=== PATIENT | female | born 1995 | race Hispanic/Latino ===

== ENCOUNTER 2017-12-18 17:14 | Inpatient (IN) | payer BC ==
[2017-12-18] MEDS ORDERED: Sodium Chloride 0.9% 1,000 ML IV STA (17:34)
--- NOTE | 2017-12-18 17:40 | ED PDOC ---
Arrival/HPI - General Chief Complaint: Abdominal Pain Time Seen by Provider: 12/18/17 17:29 Historian: Patient - History of Present Illness Narrative History of Present Illness (Text): 12/18/17 17:30 22 y/o male, whose PMH includes pancreatitis, and cholecystitis, who presents to the emergency department complaining of epigastric abdominal pain since last night. Patient reports she had greasy food one day ago and began to feel pain. Patient denies shortness of breath, chest pain, nausea, vomiting, diarrhea, dysuria or other complaints. Time/Duration: 24 hours Symptom Onset: Sudden Symptom Course: Unchanged Context: Home Past Medical History - Provider Review Nursing Documentation Reviewed: Yes - Infectious Disease Hx of Infectious Diseases: None - Reproductive Menopause: No - Cardiac Hx Cardiac Disorders: No - Pulmonary Hx Respiratory Disorders: No - Neurological Hx Neurological Disorder: No - HEENT Hx HEENT Disorder: No - Renal Hx Renal Disorder: No - Endocrine/Metabolic Hx Endocrine Disorders: No - Hematological/Oncological Hx Blood Disorders: No - Integumentary Hx Dermatological Disorder: No - Musculoskeletal/Rheumatological Hx Musculoskeletal Disorders: No Hx Falls: No - Gastrointestinal Hx Gastrointestinal Disorders: No - Genitourinary/Gynecological Hx Genitourinary Disorders: No - Psychiatric Hx Psychophysiologic Disorder: No Hx Substance Use: No - Anesthesia Hx Anesthesia: No Family/Social History - Physician Review Nursing Documentation Reviewed: Yes Family/Social History: Unknown Family HX Smoking Status: Never Smoked Hx Alcohol Use: No Hx Substance Use: No Allergies/Home Meds Allergies/Adverse Reactions: Allergies No Known Allergies Allergy (Verified 12/18/17 17:28) Home Medications: Home Meds Medication Instructions Recorded Confirmed No Known Home Med 12/18/17 12/18/17 Review of Systems - Physician Review All systems were reviewed & negative as marked: Yes - Review of Systems Constitutional: absent: Fevers Respiratory: absent: SOB Gastrointestinal: Abdominal Pain Physical Exam Vital Signs Reviewed: Yes Vital Signs Temp Pulse Resp BP Pulse Ox 12/18/17 20:01 76 18 131/79 99 12/18/17 17:24 98.1 F 82 18 148/100 H 99 Temperature: Afebrile Blood Pressure: Hypertensive Pulse: Regular Respiratory Rate: Normal Appearance: Positive for: Well-Appearing, Non-Toxic, Comfortable, Other ( morbidly obese) Pain Distress: None Mental Status: Positive for: Alert and Oriented X 3 - Systems Exam Head: Present: Atraumatic, Normocephalic Pupils: Present: PERRL Extroacular Muscles: Present: EOMI Conjunctiva: Present: Normal Respiratory/Chest: Present: Clear to Auscultation, Good Air Exchange. No: Respiratory Distress, Accessory Muscle Use, Wheezes, Rhonchi Cardiovascular: Present: Regular Rate and Rhythm, Normal S1, S2. No: Murmurs Abdomen: No: Tenderness, Distention, Peritoneal Signs, Rebound, Guarding Neurological: Present: GCS=15, CN II-XII Intact, Speech Normal Skin: Present: Warm, Dry, Normal Color. No: Rashes Psychiatric: Present: Alert, Oriented x 3, Normal Insight, Normal Concentration Medical Decision Making ED Course and Treatment: 12/18/17 Impression: 22 y/o female with unremarkable physical exam complaining of abdominal pain in the epigastric region since last night. Plan: -- Labs -- Urinalysis -- Ultrasound -- Sodium Chloride -- Reassess and disposition Prior Visits: Notes and results from previous visits were reviewed. Progress Notes: 12/18/17 20:00 Ultrasound abdomen: US Abdomen Limited, Right Upper Quadrant FINDINGS: Liver: Echogenic. No masses. Gallbladder: There are gallstones. There is no gallbladder wall thickening or sonographic Grant sign. Common bile duct: The bile duct measures 0.7 cm. There is no definite obstructing mass or calcification. Pancreas: Visualized pancreas is unremarkable. Right kidney: Normal. No mass. No hydronephrosis. IMPRESSION: There is no sonographic evidence for cholecystitis. 12/23/17 11:51 elevated lfts cbd dilation suspect choledolithaisis, dr starr accepts - Lab Interpretations Microbiology Results: Microbiology Results 12/18/17 18:05 Urine,Clean Catch Urine Culture - Final Gram Negative Jamaal Lab Results: 12/18/17 17:50 12/18/17 17:50 Lab Results 12/18/17 18:35: Urine Color Dark yellow, Urine Appearance Clear, Urine pH 6.5, Ur Specific [place] 1.020, Urine Protein Trace H, Urine Glucose (UA) Negative, Urine Ketones Negative, Urine Blood Negative, Urine Nitrate Negative, Urine Bilirubin Moderate H, Urine Urobilinogen 1.0 H, Ur Leukocyte Esterase Trace H, Urine RBC Negative, Urine WBC 0 - 2, Ur Epithelial Cells 1 - 3, Urine Bacteria Small, Urine HCG, Qual Negative 12/18/17 17:50: Sodium 142, Potassium 4.1, Chloride 104, Carbon Dioxide 27, Anion Gap 16, BUN 10, Creatinine 0.7, Est GFR ( Amer) > 60, Est GFR (Non- Af Amer) > 60, Random Glucose 98, Calcium 8.9, Magnesium 2.1, Total Bilirubin 2.4 H, Direct Bilirubin 1.8 H, AST 179 H, ALT 358 H, Alkaline Phosphatase 131 H , Total Protein 7.6, Albumin 4.1, Globulin 3.5, Albumin/Globulin Ratio 1.2, Lipase 93 12/18/17 17:50: PT 12.2, INR 1.07, APTT 28.6 12/18/17 17:50: WBC 8.1, RBC 4.57, Hgb 14.0, Hct 40.9, MCV 89.5, MCH 30.6, MCHC 34.2, RDW 13.7, Plt Count 296, MPV 10.0, Gran % 64.4, Lymph % (Auto) 24.3, [place] % (Auto) 7.2 H, Eos % (Auto) 4.0, Baso % (Auto) 0.1, Gran # 5.20, Lymph # (Auto ) 2.0, [place] # (Auto) 0.6, Eos # (Auto) 0.3, Baso # (Auto) 0.01 I have reviewed the lab results: Yes - RAD Interpretation Radiology Orders: 12/18/17 17:35 GALLBLADDER & COMMON DUCT [US] Stat Training Development Specialist: Radiologist - Medication Orders Current Medication Orders: Acetaminophen (Tylenol 325mg Tab) 650 mg PO Q6H PRN PRN Reason: Pain, moderate (4-7) Lactated Ringer's (Lactated Ringer's) 1,000 mls @ 75 mls/hr IV .[id number] RODO Morphine Sulfate (Morphine) 1 mg IM Q4H PRN PRN Reason: Pain, moderate (4-7) Last Admin: 12/23/17 06:05 Dose: 1 mg CHANELLE Pain Assessment Document 12/23/17 06:05 BR (Rec: 12/23/17 06:05 [id number] Pain Reassessment Is this a pain reassessment? No Sleep Is patient sleeping during reassessment? No Presence of Pain Presence of Pain Yes IM Administration Charges Document 12/23/17 06:05 BR (Rec: 12/23/17 06:05 BR [id number]) Charges for Administration # of IM Administrations 1 Re-Assess: MAR Pain Assessment Document 12/23/17 07:05 [facility] (Rec: 12/23/17 09:37 [id number]) Pain Reassessment Is this a pain reassessment? Yes Sleep Is patient sleeping during reassessment? No Presence of Pain Presence of Pain Yes Pain Scale Used Pain Scale Used Numeric Description Intensity of Pain at present 3 Pantoprazole Sodium (Protonix Inj) 40 mg IVP DAILY [facility] Last Admin: 12/23/17 09:37 Dose: 40 mg IVP Administration Document 12/23/17 09:37 [facility] (Rec: 12/23/17 09:37 [id number] Charges for Administration # of IVP Administrations 1 Discontinued Medications Sodium Chloride (Sodium Chloride 0.9%) 1,000 mls @ 1,000 mls/hr IV .Q1H STA Stop: 12/18/17 18:33 Last Admin: 12/18/17 17:45 Dose: 1,000 mls/hr eMAR Start Stop Document 12/18/17 17:45 GMD (Rec: 12/18/17 18:47 GMD [id number]) Intravenous Solution Start Date 12/18/17 Start Time 18:47 End Date 12/18/17 End time 19:47 Total Infusion Time 60 Lactated Ringer's (Lactated Ringer's) 1,000 mls @ 182 mls/hr IV .Q5H30M [facility] Last Admin: 12/18/17 20:56 Dose: 182 mls/hr eMAR Start Stop Document 12/18/17 20:56 [facility] (Rec: 12/18/17 20:56 [id number]) Intravenous Solution Start Date 12/18/17 Start Time 20:56 Lactated Ringer's (Lactated Ringer's) 1,000 mls @ 75 mls/hr IV .[id number] [facility] Last Admin: 12/19/17 02:38 Dose: 75 mls/hr eMAR Start Stop Document 12/19/17 02:38 [facility] (Rec: 12/19/17 02:38 [id number]) Intravenous Solution Start Date 12/19/17 Start Time 02:38 Lactated Ringer's (Lactated Ringer's) 1,000 mls @ 150 mls/hr IV .Q6H40M [facility] Last Admin: 12/22/17 23:57 Dose: 150 mls/hr eMAR Start Stop Document 12/22/17 23:57 BR (Rec: 12/22/17 23:[id number] Intraven[facility] Solution Start Date 12/22/17 Start Time 23:57 Morphine Sulfate (Morphine) 4 mg IVP Q6H PRN PRN Reason: Pain, severe (8-10) Morphine Sulfate (Morphine) 1 mg IVP ONCE PRN PRN Reason: Pain, moderate (4-7) Morphine Sulfate (Morphine) 1 mg IVP STAT STA Stop: 12/22/17 23:05 Last Admin: 12/22/17 23:23 Dose: 1 mg MAR Pain Assessment Document 12/22/17 23:23 BR (Rec: 12/22/17 23:[id number] Pain Reassessment Is this a pain reassessment? No Sleep Is patient sleeping during reassessment? No Presence of Pain Presence of Pain Yes IVP Administration Document 12/22/17 23:23 BR (Rec: 12/22/17 23:23 [id number] Charges for Administration # of IVP Administrations 1 - Scribe Statement The provider has reviewed the documentation as recorded by the Scribe Sruthi Bingham Provider Scribe Attestation: All medical record entries made by the Scribe were at my direction and personally dictated by me. I have reviewed the chart and agree that the record accurately reflects my personal performance of the history, physical exam, medical decision making, and the department course for this patient. I have also personally directed, reviewed, and agree with the discharge instructions and disposition. Disposition/Present on Arrival - Present on Arrival Any Indicators Present on Arrival: No History of DVT/PE: No History of Uncontrolled Diabetes: No Urinary Catheter: No History of Decub. Ulcer: No History Surgical Site Infection Following: None - Disposition Have Diagnosis and Disposition been Completed?: Yes Diagnosis: Choledocholithiasis Disposition: HOSPITALIZED Disposition Time: 10:00 Condition: STABLE
[2017-12-18 18:29] LABS: BASO # 0.01 K/mm3 (0.0-2.0); BASO % 0.1 % (0.0-3.0); EOS # 0.3 (0.0-0.7); GRAN # 5.2 (1.4-6.5); GRAN % 64.4 % (50.0-68.0); LYMPH % 24.3 % (22.0-35.0); MEAN CELL VOLUME 89.5 fl (80.0-105.0); MEAN CORPUSCULAR HEMOGLOBIN 30.6 pg (25.0-35.0); MEAN CORPUSCULAR HGB CONC 34.2 g/dl (31.0-37.0); MONO # 0.6 (0.1-0.6); MONO % 7.2 % (1.0-6.0); RBC 4.57 10^6/uL (3.5-6.1); RED CELL DISTRIBUTION WIDTH 13.7 % (11.5-14.5); WHITE BLOOD COUNT 8.1 10^3/ul (4.5-11.0)
[2017-12-18 18:35] LABS: INR 1.07; PARTIAL THROMBOPLASTIN TIME 28.6 Seconds (25.1-36.5); PROTHROMBIN TIME 12.2 SECONDS (9.4-12.5)
[2017-12-18 18:38] LABS: ALB/GLOB RATIO 1.2 (1.1-1.8); ALBUMIN 4.1 g/dL (3.0-4.8); ALT/SGPT 358 U/L (7-56); AST/SGOT 179 U/L (14-36); BILIRUBIN,DIRECT 1.8 mg/dL (0.0-0.4); BLOOD UREA NITROGEN 10 mg/dL (7-21); CALCIUM 8.9 mg/dL (8.4-10.5); GFR NON-AFRICAN AMERICAN > 60; LIPASE 93 U/L (23-300)
[2017-12-18 19:04] LABS: PH,URINE 6.5 (4.7-8.0); URINE BILIRUBIN MODERATE (NEGATIVE); URINE BLOOD NEGATIVE (NEGATIVE); URINE GLUCOSE (UA) NEGATIVE (NEGATIVE); URINE LEUKOCYTE ESTERASE TRACE Leu/uL (NEGATIVE); URINE PROTEIN TRACE mg/dL (<30 mg/dL)
[2017-12-18 19:05] LABS: URINE APPEARANCE CLEAR (CLEAR); URINE COLOR DARK YELLOW (YELLOW)
[2017-12-18 19:07] LABS: HCG,QUALITATIVE URINE NEGATIVE (NEGATIVE)
[2017-12-18 19:12] LABS: URINE BACTERIA SMALL (NEG); URINE RBC NEGATIVE /hpf (0-2); URINE WBC 0 - 2 /hpf (0-6)
--- NOTE | 2017-12-18 19:25 | CP.PCM.CON ---
History of Present Illness - History of Present Illness History of Present Illness: General Surgery Consult Note for Dr. Ahumada Reason for consult: abdominal pain, cholelithiasis, suspected choledolcholithiasis 22 F with PMH that includes morbid obesity, cholelithiasis [place] [facility] [place]. Patient seen and evaluated in the ED. Patient states pain began 1 day ago while laying down. Patient reports sudden onset. She states that she was diagnosed with gallstones about 3 years ago and has has pain intermittently since then. She denies associated fever/chills or nausea/ vomiting. Patient rates pain as severe at its worse but currently not having any pain. She describes pain as constant and sharp located in the epigastrium with radiation to her back. Eating/drinking made the pain worse. Patient took ibuprofen for the pain but did not help. 12 point ROS was found to be negative unless otherwise stated above. PMH: morbid obesity, cholelithiasis Meds: Phentermine Allergy: NKDA PSH: ERCP FH: non-contributory Social: current smoker - 6 cigarettes per day for 2 years, Denies EtOH and illicit drug use, student Review of Systems - Review of Systems All systems: reviewed and no additional remarkable complaints except (as per HPI ) Past Patient History - Infectious Disease Hx of Infectious Diseases: None - Past Social History Smoking Status: Never Smoked - CARDIAC Hx Cardiac Disorders: No - PULMONARY Hx Respiratory Disorders: No - NEUROLOGICAL Hx Neurological Disorder: No - HEENT Hx HEENT Problems: No - RENAL Hx Chronic Kidney Disease: No - ENDOCRINE/METABOLIC Hx Endocrine Disorders: No - HEMATOLOGICAL/ONCOLOGICAL Hx Blood Disorders: No - INTEGUMENTARY Hx Dermatological Problems: No - MUSCULOSKELETAL/RHEUMATOLOGICAL Hx Musculoskeletal Disorders: No Hx Falls: No - GASTROINTESTINAL Hx Gastrointestinal Disorders: No - GENITOURINARY/GYNECOLOGICAL Hx Genitourinary Disorders: No - PSYCHIATRIC Hx Psychophysiologic Disorder: No Hx Substance Use: No - SURGICAL HISTORY Hx Surgeries: No - ANESTHESIA Hx Anesthesia: No Meds Allergies/Adverse Reactions: Allergies Allergy/AdvReac Type Severity Reaction Status Date / Time No Known Allergies Allergy Verified 12/18/17 17:28 Physical Exam - Constitutional Appears: No Acute Distress - Head Exam Head Exam: ATRAUMATIC, NORMOCEPHALIC - Eye Exam Eye Exam: EOMI, Normal appearance Pupil Exam: PERRL - ENT Exam ENT Exam: Mucous Membranes Moist - Respiratory Exam Respiratory Exam: NORMAL BREATHING PATTERN - Cardiovascular Exam Cardiovascular Exam: REGULAR RHYTHM - GI/Abdominal Exam GI & Abdominal Exam: Normal Bowel Sounds, Soft, Tenderness (mild epigastrium). absent: Distended, Firm, Guarding, Rebound, Rigid Additional comments: (-) Grant's sign - Extremities Exam Extremities exam: Positive for: normal capillary refill, pedal pulses present - Back Exam Back exam: absent: CVA tenderness (L), CVA tenderness (R) - Neurological Exam Neurological exam: Alert, Oriented x3 - Psychiatric Exam Psychiatric exam: Normal Affect, Normal Mood - Skin Skin Exam: Dry, Intact, Normal Color, Warm Results - Vital Signs Recent Vital Signs: Last Vital Signs Temp 98.1 F 12/18/17 17:24 Pulse 82 12/18/17 17:24 Resp 18 12/18/17 17:24 BP 148/100 H 12/18/17 17:24 Pulse Ox 99 12/18/17 17:24 - Labs Result Diagrams: 12/18/17 17:50 12/18/17 17:50 Labs: Laboratory Results - last 24 hr 12/18/17 12/18/17 12/18/17 17:50 17:50 17:50 WBC 8.1 RBC 4.57 Hgb 14.0 Hct 40.9 MCV 89.5 MCH 30.6 MCHC 34.2 RDW 13.7 Plt Count 296 MPV 10.0 Gran % 64.4 Lymph % (Auto) 24.3 [place] % (Auto) 7.2 H Eos % (Auto) 4.0 Baso % (Auto) 0.1 Gran # 5.20 Lymph # (Auto) 2.0 [place] # (Auto) 0.6 Eos # (Auto) 0.3 Baso # (Auto) 0.01 PT 12.2 INR 1.07 APTT 28.6 Sodium 142 Potassium 4.1 Chloride 104 Carbon Dioxide 27 Anion Gap 16 BUN 10 Creatinine 0.7 Est GFR ( Amer) > 60 Est GFR (Non-Af Amer) > 60 Random Glucose 98 Calcium 8.9 Magnesium 2.1 Total Bilirubin 2.4 H Direct Bilirubin 1.8 H AST 179 H ALT 358 H Alkaline Phosphatase 131 H Total Protein 7.6 Albumin 4.1 Globulin 3.5 Albumin/Globulin Ratio 1.2 Lipase 93 Urine Color Urine Appearance Urine pH Ur Specific [place] Urine Protein Urine Glucose (UA) Urine Ketones Urine Blood Urine Nitrate Urine Bilirubin Urine Urobilinogen Ur Leukocyte Esterase Urine RBC Urine WBC Ur Epithelial Cells Urine Bacteria Urine HCG, Qual 12/18/17 18:35 WBC RBC Hgb Hct MCV MCH MCHC RDW Plt Count MPV Gran % Lymph % (Auto) [place] % (Auto) Eos % (Auto) Baso % (Auto) Gran # Lymph # (Auto) [place] # (Auto) Eos # (Auto) Baso # (Auto) PT INR APTT Sodium Potassium Chloride Carbon Dioxide Anion Gap BUN Creatinine Est GFR ( Amer) Est GFR (Non-Af Amer) Random Glucose Calcium Magnesium Total Bilirubin Direct Bilirubin AST ALT Alkaline Phosphatase Total Protein Albumin Globulin Albumin/Globulin Ratio Lipase Urine Color Dark yellow Urine Appearance Clear Urine pH 6.5 Ur Specific [place] 1.020 Urine Protein Trace H Urine Glucose (UA) Negative Urine Ketones Negative Urine Blood Negative Urine Nitrate Negative Urine Bilirubin Moderate H Urine Urobilinogen 1.0 H Ur Leukocyte Esterase Trace H Urine RBC Negative Urine WBC 0 - 2 Ur Epithelial Cells 1 - 3 Urine Bacteria Small Urine HCG, Qual Negative Assessment & Plan - Assessment and Plan (Free Text) Assessment: 22 F who presents with abdominal pain, cholelithiasis, suspected choledolcholithiasis Plan: -NPO -IV fluids -Analgesics/Anti-emetics PRN -GI consult for ERCP, help appreciated -f/u MRCP -Monitor WBC, LFTs -Serial abdominal exams -Further recommendations as per Dr. Brandyn Tripathi PGY2 - Date & Time Date: 12/18/17 Time: 19:00
[2017-12-18] MEDS ORDERED: Morphine 4 mg/ml ISec IVP PRN ×2 (20:23→20:25)
[2017-12-18] MEDS ORDERED: Lactated Ringer's 1,000 ML IV SCH ×2 (20:30→23:21)
[2017-12-18 21:25] VITALS: BMI 50.8
[2017-12-19 06:26] LABS: HEMOGLOBIN 12.8 g/dL (12.0-16.0); MEAN CELL VOLUME 89.9 fl (80.0-105.0); MEAN CORPUSCULAR HGB CONC 33.3 g/dl (31.0-37.0); MEAN PLATELET VOLUME 10.1 fl (7.0-11.0); RBC 4.27 10^6/uL (3.5-6.1); RED CELL DISTRIBUTION WIDTH 13.9 % (11.5-14.5); WHITE BLOOD COUNT 9.5 10^3/ul (4.5-11.0)
[2017-12-19 06:49] LABS: ALB/GLOB RATIO 1.2 (1.1-1.8); ALBUMIN 3.7 g/dL (3.0-4.8); ALT/SGPT 267 U/L (7-56); AST/SGOT 95 U/L (14-36); BLOOD UREA NITROGEN 7 mg/dL (7-21); CALCIUM 8.7 mg/dL (8.4-10.5); GFR NON-AFRICAN AMERICAN > 60
--- NOTE | 2017-12-19 07:12 | CP.PCM.PN ---
<Juan Lloyd - Last Filed: 12/19/17 07:19> Subjective - Date & Time of Evaluation Date of Evaluation: 12/19/17 Time of Evaluation: 07:00 - Subjective Subjective: General Surgery progress note for Dr Ahumada. Pt seen and examined at bedside this morning. Pt reports abdominal pain has resolved since yesterday. Denies nausea, vomiting, diarrhea, SOB, and chest pain. Objective - Vital Signs/Intake and Output Vital Signs (last 24 hours): Temp Pulse Resp BP Pulse Ox 98.3 F 72 20 138/89 98 12/18/17 22:00 12/18/17 22:00 12/18/17 22:00 12/18/17 22:00 12/18/17 22:00 - Medications Medications: Current Medications Lactated Ringer's (Lactated Ringer's) 1,000 mls @ 75 mls/hr IV .[id number] RODO Last Admin: 12/19/17 02:38 Dose: 75 mls/hr Morphine Sulfate (Morphine) 4 mg IVP Q4H PRN PRN Reason: Pain, severe (8-10) - Labs Labs: 12/19/17 06:00 12/19/17 06:00 PT 12.2 SECONDS (9.4-12.5) 12/18/17 17:50 INR 1.07 12/18/17 17:50 APTT 28.6 Seconds (25.1-36.5) 12/18/17 17:50 - Constitutional Appears: No Acute Distress - Head Exam Head Exam: ATRAUMATIC, NORMOCEPHALIC - Eye Exam Eye Exam: EOMI - ENT Exam ENT Exam: Mucous Membranes Moist - Neck Exam Neck Exam: Full ROM - Respiratory Exam Respiratory Exam: Clear to Ausculation Bilateral, NORMAL BREATHING PATTERN. absent: Accessory Muscle Use, Rales, Rhonchi, Wheezes, Respiratory Distress, Stridor - Cardiovascular Exam Cardiovascular Exam: REGULAR RHYTHM, RRR, +S1, +S2. absent: Bradycardia, Tachycardia, Diastolic murmur, Irregular Rhythm, JVD - GI/Abdominal Exam GI & Abdominal Exam: Soft, Normal Bowel Sounds. absent: Distended, Firm, Guarding, Rigid, Tenderness, Rebound - Extremities Exam Extremities Exam: Full ROM, Normal Inspection. absent: Calf Tenderness, Pedal Edema, Tenderness - Back Exam Back Exam: Full ROM. absent: CVA tenderness (L), CVA tenderness (R), muscle spasm, tenderness - Neurological Exam Neurological Exam: Alert, Awake, Oriented x3 - Psychiatric Exam Psychiatric exam: Normal Affect, Normal Mood - Skin Skin Exam: Dry, Normal Color, Warm Assessment and Plan - Assessment and Plan (Free Text) Assessment: 22 F who presents with abdominal pain, cholelithiasis, suspected choledolcholithiasis Plan: -F/u with GI recs -f/u MRCP -Further recommendations as per Dr. Brandyn Lloyd PGY-1 <Rowdy Neumann - Last Filed: 12/19/17 08:33> Objective - Vital Signs/Intake and Output Vital Signs (last 24 hours): Temp Pulse Resp BP Pulse Ox 98 F 68 20 159/60 H 97 12/19/17 07:56 12/19/17 07:56 12/19/17 07:56 12/19/17 07:56 12/19/17 07:56 - Medications Medications: Current Medications Lactated Ringer's (Lactated Ringer's) 1,000 mls @ 75 mls/hr IV .[id number] RODO Last Admin: 12/19/17 02:38 Dose: 75 mls/hr Morphine Sulfate (Morphine) 4 mg IVP Q4H PRN PRN Reason: Pain, severe (8-10) - Labs Labs: 12/19/17 06:00 12/19/17 06:00 PT 12.2 SECONDS (9.4-12.5) 12/18/17 17:50 INR 1.07 12/18/17 17:50 APTT 28.6 Seconds (25.1-36.5) 12/18/17 17:50
--- NOTE | 2017-12-19 07:14 | CP.PCM.HP ---
<Mercedes Penaloza - Last Filed: 12/19/17 10:15> History of Present Illness - History of Present Illness History of Present Illness: PGY-[address] Aaron Ms Gan, 22F, , with PMHx morbid obesity, cholelithiasis c/o abdominal pain x 1 day. she was diagnosed with gallstones about 3 years ago and has has pain intermittently since then. She had pizza on Tuesday night at 6pm. Shortly after, she felt the same abdominal pain but lasted longer than before. The pain was sharp, mid-epigastric and 8/10 in pain scale at its worse, (+) radiation to mid back. Ibuprofen helped the pain but only briefly. Last EDG in Mar showed chronic gastritis, neg H pylori ROS: Denies F/C, N/V/D/C, dysuria ED course: VS normal CBC normal CMP significant for TB 2.4, DB 1.8, AST 179, ALT 358, alk phos 131 Normal lipase Pt received 1L NS Ultrasound US, Limited to Right Upper Quadrant: (+) gallstones. No gallbladder wall thickening or sonographic Grant sign (+) bile duct measures 0.7 cm. PMH morbid obesity, cholelithiasis OBGYN LMP last month, on depo-provera as contraceptive. Sexually active, 1 male partner, use condom, denied STD PSH None FH Parents diabetes; grandmother emphysema from smoking; family has gallstone. SH current smoker - 6 cigarettes per day for 2 years, Denies EtOH and illicit drug use, student All NKDA Med PENTERMINE for wt control; depo-provera as contraception PMD Dr Aaron Present on Admission - Present on Admission Any Indicators Present on Admission: No Past Patient History - Infectious Disease Hx of Infectious Diseases: None - Past Social History Smoking Status: Never Smoked - CARDIAC Hx Cardiac Disorders: No - PULMONARY Hx Respiratory Disorders: No - NEUROLOGICAL Hx Neurological Disorder: No - HEENT Hx HEENT Problems: No - RENAL Hx Chronic Kidney Disease: No - ENDOCRINE/METABOLIC Hx Endocrine Disorders: No - HEMATOLOGICAL/ONCOLOGICAL Hx Blood Disorders: No - INTEGUMENTARY Hx Dermatological Problems: No - MUSCULOSKELETAL/RHEUMATOLOGICAL Hx Musculoskeletal Disorders: No Hx Falls: No - GASTROINTESTINAL Hx Gastrointestinal Disorders: No - GENITOURINARY/GYNECOLOGICAL Hx Genitourinary Disorders: No - PSYCHIATRIC Hx Psychophysiologic Disorder: No Hx Substance Use: No - SURGICAL HISTORY Hx Surgeries: No - ANESTHESIA Hx Anesthesia: No Meds Allergies/Adverse Reactions: Allergies Allergy/AdvReac Type Severity Reaction Status Date / Time No Known Allergies Allergy Verified 12/18/17 17:28 Physical Exam - Constitutional Appears: No Acute Distress - Head Exam Head Exam: ATRAUMATIC, NORMAL INSPECTION, NORMOCEPHALIC - Eye Exam Eye Exam: EOMI, Normal appearance, PERRL. absent: Scleral icterus Pupil Exam: NORMAL ACCOMODATION - ENT Exam ENT Exam: Mucous Membranes Moist - Neck Exam Additional comments: supple - Respiratory Exam Respiratory Exam: Clear to Auscultation Bilateral, NORMAL BREATHING PATTERN. absent: Rales, Rhonchi, Wheezes - Cardiovascular Exam Cardiovascular Exam: REGULAR RHYTHM, +S1, +S2 - GI/Abdominal Exam GI & Abdominal Exam: Normal Bowel Sounds, Soft. absent: Distended, Guarding, Rigid, Tenderness - Extremities Exam Extremities exam: Positive for: normal capillary refill. Negative for: calf tenderness, pedal pulses present - Back Exam Back exam: absent: CVA tenderness (L), CVA tenderness (R) - Neurological Exam Neurological exam: Alert, Oriented x3 - Psychiatric Exam Psychiatric exam: Normal Affect, Normal Mood - Skin Skin Exam: Dry, Warm Results - Vital Signs Recent Vital Signs: Last Vital Signs Temp 98.3 F 12/18/17 22:00 Pulse 72 12/18/17 22:00 Resp 20 12/18/17 22:00 BP 138/89 12/18/17 22:00 Pulse Ox 98 12/18/17 22:00 - Labs Result Diagrams: 12/19/17 06:00 12/19/17 06:00 Labs: Laboratory Results - last 24 hr 12/18/17 12/19/17 12/19/17 19:19 06:00 06:00 WBC 9.5 RBC 4.27 Hgb 12.8 Hct 38.4 MCV 89.9 MCH 30.0 MCHC 33.3 RDW 13.9 Plt Count 274 MPV 10.1 Sodium 143 Potassium 3.8 Chloride 109 H Carbon Dioxide 23 Anion Gap 14 BUN 7 Creatinine 0.7 Est GFR ( Amer) > 60 Est GFR (Non-Af Amer) > 60 Random Glucose 93 Calcium 8.7 Phosphorus 3.5 Magnesium 2.0 Total Bilirubin 1.3 GGT 598 H AST 95 H D ALT 267 H Alkaline Phosphatase 137 H Total Protein 6.8 Albumin 3.7 Globulin 3.1 Albumin/Globulin Ratio 1.2 Assessment & Plan - Assessment and Plan (Free Text) Plan: Abdominal pain Cholestasis with direct hyperbilirubinemia and transaminitis, questionable choledocholethiasis, R/O cholangitis Cholelithiasis. Had ruled out cholecystitis - NPO, LR @75, morphine PRN - MRCP, pending official read. Then will decide whether ERCP is necessary. If no plan for further intervention, diet challenge per GI/Surg - GI onboard - High risk of development of gallstone: (+) Family history, (+) contraceptives, (+) high fat diet Transaminitis, likely due to choledocholethiasis - further work up pending GI rec Active smoker - juvenile counselor for cessation Prophylasix - SCD, low risk for GI stress ulcer s/r/d/ w Dr Aaron <Matteo Aaron S - Last Filed: 12/19/17 18:41> Results - Vital Signs Recent Vital Signs: Last Vital Signs Temp 98.6 F 12/19/17 16:48 Pulse 73 12/19/17 16:48 Resp 20 12/19/17 16:48 BP 158/81 H 12/19/17 16:48 Pulse Ox 97 12/19/17 16:48 - Labs Result Diagrams: 12/19/17 06:00 12/19/17 06:00 Labs: Laboratory Results - last 24 hr 12/18/17 12/19/17 12/19/17 19:19 06:00 06:00 WBC 9.5 RBC 4.27 Hgb 12.8 Hct 38.4 MCV 89.9 MCH 30.0 MCHC 33.3 RDW 13.9 Plt Count 274 MPV 10.1 Sodium 143 Potassium 3.8 Chloride 109 H Carbon Dioxide 23 Anion Gap 14 BUN 7 Creatinine 0.7 Est GFR ( Amer) > 60 Est GFR (Non-Af Amer) > 60 Random Glucose 93 Calcium 8.7 Phosphorus 3.5 Magnesium 2.0 Total Bilirubin 1.3 GGT 598 H AST 95 H D ALT 267 H Alkaline Phosphatase 137 H Total Protein 6.8 Albumin 3.7 Globulin 3.1 Albumin/Globulin Ratio 1.2 Assessment & Plan - Assessment and Plan (Free Text) Plan: Pt seen and examined. I have reviewed the note of the biomedical repair technician and agree with it. I have discussed the assessment and plan with the resident. I have reviewed the patient's labs and medications. Pt with abd pain. She has elevated Bili. She will need MRCP and GI evaluation.Spoke to her mother at bedside. Pt will be NPO and on IVF. Follow labs. Morbid Obese BMI - 50
[2017-12-19] MEDS ORDERED: Gadodiamide 287 MG/ML VIAL (20ML) IV ONE (08:44)
--- NOTE | 2017-12-19 09:31 | US ---
Date of service: 12/18/2017 HISTORY: upper abd pain h/o gallstones COMPARISON: None. TECHNIQUE: Grayscale imaging was performed. FINDINGS: LIVER: Measures 19.9 cm in length. There is diffuse increased echogenicity of the liver parenchyma. No mass. No intrahepatic bile duct dilatation. GALLBLADDER: There are multiple gallstones. No wall thickening or pericholecystic fluid. The sonographic Grant's sign is negative. COMMON BILE DUCT: Measures 7.2 mm. Mild diffuse dilatation without evidence for choledocholithiasis. PANCREAS: Unremarkable as visualized. No mass. No ductal dilatation. RIGHT KIDNEY: Measures 11.3 cm in length. Normal echogenicity. No calculus, mass, or hydronephrosis. AORTA: No aneurysmal dilatation. IVC: Unremarkable. OTHER FINDINGS: None . IMPRESSION: Cholelithiasis. Mild diffuse dilatation of the common bile duct without evidence for choledocholithiasis. Mild hepatomegaly. Diffuse increased echogenicity in the liver may reflect hepatic steatosis however parenchymal infectious/ inflammatory etiologies cannot be entirely excluded. Clinical and laboratory correlation is advised. A preliminary report was provided by [email or web address].
--- NOTE | 2017-12-19 12:49 | MRI ---
Date of service: 12/19/2017 PROCEDURE: MRI Abdomen with and without contrast with MRCP HISTORY: Suspected common duct stone COMPARISON: 03/02/2013 MRI. TECHNIQUE: Multisequence, multiplanar MR images of the abdomen with and without gadolinium contrast enhancement. 20 cc of Omniscan FINDINGS: LIVER: Unremarkable. GALLBLADDER: There are multiple gallstones layered in the gallbladder. There is a probable small stone in the distal common duct. The common duct measures 8 mm in diameter. The suspected stone is best visualized on coronal image 17 series 6 and axial image 19 series 9. There is also a lack of a normal tapered appearance of the distal common duct. The study was reviewed with Dr. Ahumada SPLEEN: Unremarkable. PANCREAS: Unremarkable. ADRENALS: Unremarkable. KIDNEYS: Unremarkable. AORTA: No aneurysm. ASCITES: None. PERITONEUM: Unremarkable. LYMPH NODES: Unremarkable. OTHER FINDINGS: None. IMPRESSION: Multiple gallstones. Probable small stone in the distal common duct. Mild dilatation of the common duct measuring 8 mm.
--- NOTE | 2017-12-19 13:39 | CP.PCM.CON ---
History of Present Illness - History of Present Illness History of Present Illness: Seen and examined at bedside, chart reviewed. Request for GI consult is for Abdominal Pain. HPI: This is a 22 year old obese patient with PMH of gallstones who came to the ER for sudden onset of abdominal pain, patient endorses that she recall eating pizza. She on occasion get abdominal discomfort when eat greasey food but this was more persistent. She was admitted with similar complaints in 2012, found to have gallstones, had EGD/EUS with Dr. Zuleta and found to have gastritis, and CBD was 4.3mm/PD 1.6mm and brandon-portal and mediastinal lymph nodes. She denies fever, chills, sob/chest pain. No change in bowel habits, las BM was soft and formed, no bleeding or unintensional weight loss. Had an US and found othabe gallstones, no GB wall thickening, CBD measures 0.7 cm, MRCP done and possible cbd stones in the distal common duct, mild dilation common duct 8mm. LFt elevated on admission, show improvement today. Patient endoreses that the pain has resolved. PMH: morbid obesity, gallstones, gastritis PSH: none Allergies: NKDA MEDS:reviewed as per MAR Family HX: parents DM, gallstones in family Social HX: smokes, denies etoh, illicit drugs ROS: systems reviewed with positive findings, see HPI Past Patient History - Infectious Disease Hx of Infectious Diseases: None - Past Social History Smoking Status: Never Smoked - CARDIAC Hx Cardiac Disorders: No - PULMONARY Hx Respiratory Disorders: No - NEUROLOGICAL Hx Neurological Disorder: No - HEENT Hx HEENT Problems: No - RENAL Hx Chronic Kidney Disease: No - ENDOCRINE/METABOLIC Hx Endocrine Disorders: No - HEMATOLOGICAL/ONCOLOGICAL Hx Blood Disorders: No - INTEGUMENTARY Hx Dermatological Problems: No - MUSCULOSKELETAL/RHEUMATOLOGICAL Hx Musculoskeletal Disorders: No Hx Falls: No - GASTROINTESTINAL Hx Gastrointestinal Disorders: No - GENITOURINARY/GYNECOLOGICAL Hx Genitourinary Disorders: No - PSYCHIATRIC Hx Psychophysiologic Disorder: No Hx Substance Use: No - SURGICAL HISTORY Hx Surgeries: No - ANESTHESIA Hx Anesthesia: No Meds Allergies/Adverse Reactions: Allergies Allergy/AdvReac Type Severity Reaction Status Date / Time No Known Allergies Allergy Verified 12/18/17 17:28 - Medications Medications: Current Medications Lactated Ringer's (Lactated Ringer's) 1,000 mls @ 75 mls/hr IV .[id number] RODO Last Admin: 12/19/17 02:38 Dose: 75 mls/hr Morphine Sulfate (Morphine) 4 mg IVP Q4H PRN PRN Reason: Pain, severe (8-10) Physical Exam - Constitutional Appears: No Acute Distress - Head Exam Head Exam: NORMOCEPHALIC - Eye Exam Eye Exam: Normal appearance. absent: Scleral icterus - ENT Exam ENT Exam: Mucous Membranes Moist - Neck Exam Neck exam: Positive for: Normal Inspection - Respiratory Exam Respiratory Exam: Clear to Auscultation Bilateral, NORMAL BREATHING PATTERN. absent: Respiratory Distress - Cardiovascular Exam Cardiovascular Exam: +S1, +S2 - GI/Abdominal Exam GI & Abdominal Exam: Normal Bowel Sounds, Soft. absent: Guarding (obese), Rebound, Tenderness - Extremities Exam Extremities exam: Positive for: pedal pulses present. Negative for: calf tenderness, pedal edema - Neurological Exam Neurological exam: Alert, Oriented x3 - Skin Skin Exam: Dry, Warm Results - Vital Signs Recent Vital Signs: Last Vital Signs Temp 98 F 12/19/17 07:56 Pulse 68 12/19/17 07:56 Resp 20 12/19/17 07:56 BP 159/60 H 12/19/17 07:56 Pulse Ox 97 12/19/17 07:56 - Labs Result Diagrams: 12/19/17 06:00 12/19/17 06:00 Labs: Laboratory Results - last 24 hr 12/18/17 12/19/17 12/19/17 19:19 06:00 06:00 WBC 9.5 RBC 4.27 Hgb 12.8 Hct 38.4 MCV 89.9 MCH 30.0 MCHC 33.3 RDW 13.9 Plt Count 274 MPV 10.1 Sodium 143 Potassium 3.8 Chloride 109 H Carbon Dioxide 23 Anion Gap 14 BUN 7 Creatinine 0.7 Est GFR ( Amer) > 60 Est GFR (Non-Af Amer) > 60 Random Glucose 93 Calcium 8.7 Phosphorus 3.5 Magnesium 2.0 Total Bilirubin 1.3 GGT 598 H AST 95 H D ALT 267 H Alkaline Phosphatase 137 H Total Protein 6.8 Albumin 3.7 Globulin 3.1 Albumin/Globulin Ratio 1.2 Assessment & Plan - Assessment and Plan (Free Text) Assessment: ASSESSMENT: Resolved abdominal pain Cholelithiasis, probable CBD stone, cbd dilation Elevated LFT marquez secondary to above Morbid Obesity PLAN: monitor LFT, CMP in am can have clear liquids on IVF request for HIDA scan surgery on board if patient need ERCP may have to be transferred to [place], currently no Physician at [facility] to perform ERCP, patient pending HIDA scan. Will monitor closely, LFT have decreased and patient no abdominal pain. Thank you for this consult and for allowing us to participate in your patient care, further recommendation based upon clinical course. Discussed with Dr. Hinkle who is covering Dr. Zuleta.
--- NOTE | 2017-12-20 07:49 | CP.PCM.PN ---
Subjective - Date & Time of Evaluation Date of Evaluation: 12/20/17 Time of Evaluation: 07:30 - Subjective Subjective: General Surgery progress note for Dr Ahumada Pt seen and examined at bedside this morning. Pt reports only mild abdominal pain. Pt denies chest pain, SOB, nausea, or vomiting. Objective - Vital Signs/Intake and Output Vital Signs (last 24 hours): Temp Pulse Resp BP Pulse Ox 97.7 F 76 16 127/81 95 12/19/17 22:45 12/19/17 22:45 12/19/17 22:45 12/19/17 22:45 12/19/17 22:45 Intake and Output: 12/20/17 12/20/17 06:59 18:59 Intake Total 360 Balance 360 - Medications Medications: Current Medications Lactated Ringer's (Lactated Ringer's) 1,000 mls @ 75 mls/hr IV .[id number] RODO Last Admin: 12/19/17 02:38 Dose: 75 mls/hr Morphine Sulfate (Morphine) 4 mg IVP Q4H PRN PRN Reason: Pain, severe (8-10) - Labs Labs: 12/19/17 06:00 12/19/17 06:00 PT 12.2 SECONDS (9.4-12.5) 12/18/17 17:50 INR 1.07 12/18/17 17:50 APTT 28.6 Seconds (25.1-36.5) 12/18/17 17:50 - Constitutional Appears: No Acute Distress - Head Exam Head Exam: ATRAUMATIC, NORMOCEPHALIC - Eye Exam Eye Exam: EOMI - ENT Exam ENT Exam: Mucous Membranes Moist - Neck Exam Neck Exam: Full ROM - Respiratory Exam Respiratory Exam: Accessory Muscle Use, Clear to Ausculation Bilateral, NORMAL BREATHING PATTERN. absent: Wheezes, Respiratory Distress, Stridor - Cardiovascular Exam Cardiovascular Exam: REGULAR RHYTHM, RRR, +S1, +S2. absent: Bradycardia, Tachycardia, Diastolic murmur, Irregular Rhythm, JVD - GI/Abdominal Exam GI & Abdominal Exam: Soft. absent: Distended, Firm, Guarding, Rigid, Tenderness , Rebound - Extremities Exam Extremities Exam: Full ROM, Normal Inspection. absent: Calf Tenderness, Pedal Edema, Tenderness - Back Exam Back Exam: Full ROM. absent: CVA tenderness (L), CVA tenderness (R), muscle spasm - Neurological Exam Neurological Exam: Alert, Awake, Oriented x3 - Psychiatric Exam Psychiatric exam: Normal Affect, Normal Mood - Skin Skin Exam: Dry, Normal Color, Warm Assessment and Plan - Assessment and Plan (Free Text) Assessment: 22 F who presents with abdominal pain, cholelithiasis, suspected choledolcholithiasis Plan: -F/u with GI recs -advance diet to heart healthy soft -MRCP shows probable small stone in distal CBD, dilated 8mm. -Further recommendations as per Dr. Brandyn Lloyd PGY-1
[2017-12-20 07:50] LABS: ALB/GLOB RATIO 1.1 (1.1-1.8); ALBUMIN 4.1 g/dL (3.0-4.8); ALT/SGPT 193 U/L (7-56); AST/SGOT 41 U/L (14-36); BLOOD UREA NITROGEN 8 mg/dL (7-21); CALCIUM 8.9 mg/dL (8.4-10.5); GFR NON-AFRICAN AMERICAN > 60
--- NOTE | 2017-12-20 08:15 | CON ---
Copied To: Ilir Hinkle MD Attending MD: Ilir Hinkle MD ADDENDUM DATE: 12/19/2017 CONSULTATION IN GASTROENTEROLOGY This consult is for Dr. Zuleta, Dr. Hinkle covering. HISTORY OF PRESENT ILLNESS: This is an addendum to a consultation performed by Lily Zapata APN. I have personally examined this patient. The patient was admitted to the hospital after developing severe abdominal pain after having pizza. She admits to fatty food intolerance. The patient was hospitalized back in [address] Zuleta for similar symptoms. At that time, she was found to have gallstones. Dr. Zuleta performed an upper endoscopy and EUS, which revealed normal CBD and some periportal and mediastinal lymph nodes. The patient on this admission is noted to have mildly elevated liver enzymes. They are trending downward. An MRCP did not show a definitive stone in the common bile duct, but did show lack of tapered appearance to the distal common duct with a possible stone in the common bile duct. The patient is refusing surgery at this time. She wants to think about being transferred out to another hospital for an ERCP as no advanced endoscopist is present at [facility]. RECOMMENDATIONS: 1. The patient will need cholecystectomy after her CBD is cleared. I recommend this sooner than later if she continues to have symptoms. 2. We will request a hepatobiliary scan to look at flow of contrast from the common bile duct. 3. Follow serial liver enzymes. 4. Trial of clear liquid diet. Ilir Hinkle MD
--- NOTE | 2017-12-20 11:05 | CP.PCM.PN ---
Subjective - Date & Time of Evaluation Date of Evaluation: 12/20/17 Time of Evaluation: 09:50 - Subjective Subjective: S&E at bedside, chart reviewed, no acute overnight events reported. No N/V, abdominal pain improved, denies fever, chills. Had formed BM, no melena or BRBPR. Tolerated clear liquid. HIDA scan report reviewed, prelim reports GB not visualized, concern for acute cholecystitis. Objective - Vital Signs/Intake and Output Vital Signs (last 24 hours): Temp Pulse Resp BP Pulse Ox 98.2 F 75 20 122/72 96 12/20/17 08:08 12/20/17 08:08 12/20/17 08:08 12/20/17 08:08 12/20/17 08:08 Intake and Output: 12/20/17 12/20/17 06:59 18:59 Intake Total 360 Balance 360 - Medications Medications: Current Medications Lactated Ringer's (Lactated Ringer's) 1,000 mls @ 75 mls/hr IV .[id number] RODO Last Admin: 12/19/17 02:38 Dose: 75 mls/hr Morphine Sulfate (Morphine) 4 mg IVP Q4H PRN PRN Reason: Pain, severe (8-10) - Labs Labs: 12/19/17 06:00 12/20/17 07:00 PT 12.2 SECONDS (9.4-12.5) 12/18/17 17:50 INR 1.07 12/18/17 17:50 APTT 28.6 Seconds (25.1-36.5) 12/18/17 17:50 - Constitutional Appears: No Acute Distress - Head Exam Head Exam: NORMOCEPHALIC - Eye Exam Eye Exam: Normal appearance. absent: Scleral icterus - ENT Exam ENT Exam: Mucous Membranes Moist - Neck Exam Neck Exam: Normal Inspection - Respiratory Exam Respiratory Exam: Clear to Ausculation Bilateral, NORMAL BREATHING PATTERN. absent: Respiratory Distress - Cardiovascular Exam Cardiovascular Exam: +S1, +S2 - GI/Abdominal Exam GI & Abdominal Exam: Soft, Normal Bowel Sounds. absent: Guarding, Tenderness, Organomegaly, Rebound - Extremities Exam Extremities Exam: absent: Calf Tenderness, Pedal Edema - Neurological Exam Neurological Exam: Alert, Awake, Oriented x3 - Skin Skin Exam: Dry, Warm Assessment and Plan - Assessment and Plan (Free Text) Assessment: ASSESSMENT: Resolved abdominal pain Cholelithiasis, probable CBD stone, cbd dilation, HIDA scan GB not visualized, ? cholecystitis Elevated LFT likley secondary to above Morbid Obesity PLAN: monitor LFT currently NPO, continue IVF surgery on board. Patient would benefit from EUS/ERCP for further evaluation of dilated CBD and possible stone, patient will need to be transferred to facility with advanced Endoscopist, spoke to Dr. Gordon who is currently away, able to speak to Dr. Zamarripa at [place] [phone] who will accept the patient, discuss with patient regarding transfer and is currently refusing, Uncle at bedside, made aware of risk of sepsis. Discussed case with Dr. Aaron. Discussed with Dr. Hinkle who is covering Dr. Zuleta.
--- NOTE | 2017-12-20 14:38 | CP.PCM.PN ---
<Mercedes Penaloza - Last Filed: 12/20/17 14:38> Subjective - Date & Time of Evaluation Date of Evaluation: 12/20/17 Time of Evaluation: 07:00 - Subjective Subjective: pgy-[address] Aaron Pt and best friend by bedside. Abdominal pain resolved. No N/V. no other acute complaints Objective - Vital Signs/Intake and Output Vital Signs (last 24 hours): Temp Pulse Resp BP Pulse Ox 98.2 F 75 20 122/72 96 12/20/17 08:08 12/20/17 08:08 12/20/17 08:08 12/20/17 08:08 12/20/17 08:08 Intake and Output: 12/20/17 12/20/17 06:59 18:59 Intake Total 360 Balance 360 - Medications Medications: Current Medications Lactated Ringer's (Lactated Ringer's) 1,000 mls @ 75 mls/hr IV .[id number] RODO Last Admin: 12/19/17 02:38 Dose: 75 mls/hr Morphine Sulfate (Morphine) 4 mg IVP Q4H PRN PRN Reason: Pain, severe (8-10) - Labs Labs: 12/19/17 06:00 12/20/17 07:00 PT 12.2 SECONDS (9.4-12.5) 12/18/17 17:50 INR 1.07 12/18/17 17:50 APTT 28.6 Seconds (25.1-36.5) 12/18/17 17:50 - Constitutional Appears: No Acute Distress - Head Exam Head Exam: ATRAUMATIC, NORMAL INSPECTION, NORMOCEPHALIC - Eye Exam Eye Exam: EOMI, Normal appearance, PERRL. absent: Scleral icterus - ENT Exam ENT Exam: Mucous Membranes Moist - Neck Exam Additional comments: supple - Respiratory Exam Respiratory Exam: Clear to Ausculation Bilateral. absent: Rales, Rhonchi, Wheezes - Cardiovascular Exam Cardiovascular Exam: REGULAR RHYTHM, +S1, +S2 - GI/Abdominal Exam GI & Abdominal Exam: Soft, Normal Bowel Sounds. absent: Tenderness - Extremities Exam Extremities Exam: Normal Capillary Refill. absent: Calf Tenderness, Pedal Edema , Tenderness - Back Exam Back Exam: absent: CVA tenderness (L), CVA tenderness (R) - Neurological Exam Neurological Exam: Alert, Awake, Oriented x3 - Psychiatric Exam Psychiatric exam: Normal Affect, Normal Mood - Skin Skin Exam: Dry, Warm Assessment and Plan - Assessment and Plan (Free Text) Plan: Abdominal pain - resolved Cholestasis with direct hyperbilirubinemia and transaminitis, questionable choledocholethiasis, R/O cholangitis Cholelithiasis. Had ruled out cholecystitis - CLD - LR @75, morphine PRN - MRCP: suspected stone at distal common bile duct, dilated at 8mm - HIDA: pending read - May transfer to [place] for ERCP/EUS to rule out stricture or malignancy - High risk of development of gallstone: (+) Family history, (+) contraceptives, (+) high fat diet - Surgery will see if they can coordinate to operate in one surgical booking after GI procedure Transaminitis, likely due to choledocholethiasis - improving Active smoker - certified alcohol counselor for cessation Prophylasix - SCD, low risk for GI stress ulcer s/r/d/w Dr Aaron <Matteo Aaron S - Last Filed: 12/21/17 21:04> Objective - Vital Signs/Intake and Output Vital Signs (last 24 hours): Temp Pulse Resp BP Pulse Ox 98.4 F 77 20 142/85 95 12/21/17 14:00 12/21/17 14:00 12/21/17 14:00 12/21/17 14:00 12/21/17 14:00 - Medications Medications: Current Medications Acetaminophen (Tylenol 325mg Tab) 650 mg PO Q6H PRN PRN Reason: Pain, moderate (4-7) Lactated Ringer's (Lactated Ringer's) 1,000 mls @ 150 mls/hr IV .[id number] [facility] Morphine Sulfate (Morphine) 1 mg IM Q4H PRN PRN Reason: Pain, moderate (4-7) Last Admin: 12/21/17 17:05 Dose: 1 mg Pantoprazole Sodium (Protonix Inj) 40 mg IVP DAILY [facility] Last Admin: 12/21/17 15:58 Dose: 40 mg - Labs Labs: 12/19/17 06:00 12/21/17 06:45 PT 12.2 SECONDS (9.4-12.5) 12/18/17 17:50 INR 1.07 12/18/17 17:50 APTT 28.6 Seconds (25.1-36.5) 12/18/17 17:50 Assessment and Plan - Assessment and Plan (Free Text) Plan: Pt seen and examined. I have reviewed the note of the medical terminologist and agree with it. I have discussed the assessment and plan with the resident. I have reviewed the patient's labs and medications. Abd pain resolved. Pt being seen by GI and surgery. Was advised about transfer for ERCP as GI is not able to perform at [facility] at this time. Unable to transfer to [place], GI not available. [facility] is willing to take pt but she is not interested in going there.
--- NOTE | 2017-12-20 15:16 | PN ---
Copied To: Ilir Hinkle MD Attending MD: Ilir Hinkle MD DATE: 12/20/2017 SUBJECTIVE: The patient is sitting in bed. She feels much better. She has not had any further episodes of abdominal pain. Her liver enzymes are trending downward. She is tolerating clear liquid diet. The patient was offered transfer to [facility] for EUS, ERCP with . The patient states that she does not want to go to [place]. The patient was informed of the possibility of a common bile duct stone. There was an abnormality seen on MRCP that might suggest a small common bile duct stone. Hepatobiliary scan shows nonvisualization of the gallbladder with prompt excretion of nuclear material into the duodenum. I suspect that the cystic duct obstruction is secondary to chronic cholecystitis. RECOMMENDATIONS: 1. We will closely observe the patient for signs of cholangitis. 2. Await EUS and ERCP with Dr. Zuleta when he returns in the next couple of days. Ilir Hinkle MD
--- NOTE | 2017-12-20 15:36 | NM ---
Date of service: 12/19/2017 PROCEDURE: Nuclear Medicine Hepatobiliary Scan HISTORY: cholecystitis COMPARISON: MRCP 12/19/2017 TECHNIQUE: 5.8 mCi of technetium 99m Mebrofenin was administered intravenously. Planar images of the abdomen were obtained at 5 min intervals to 60 mins. Delayed images were also obtained. FINDINGS: LIVER: Timely and homogenous uptake. COMMON BILE DUCT: identified at 15 mins. GALLBLADDER: Not identified even on delayed imaging. SMALL BOWEL: Identified at 15 mins. IMPRESSION: Nonvisualization of the gallbladder consistent with acute cholecystitis
[2017-12-21 07:48] LABS: ALB/GLOB RATIO 1.1 (1.1-1.8); ALBUMIN 4.1 g/dL (3.0-4.8); ALT/SGPT 132 U/L (7-56); AST/SGOT 29 U/L (14-36); BLOOD UREA NITROGEN 9 mg/dL (7-21); CALCIUM 9.2 mg/dL (8.4-10.5); GFR NON-AFRICAN AMERICAN > 60
--- NOTE | 2017-12-21 08:34 | PN ---
Copied To: Ilir Hinkle MD Attending MD: Ilir Hinkle MD DATE: 12/21/2017 This note is for Dr. Zuleta, Dr. Hinkle covering. SUBJECTIVE: The patient is lying in bed comfortable. She has not had any abdominal pain. She denies any nausea or vomiting. PHYSICAL EXAMINATION: VITAL SIGNS: Reveal temperature of 98.2, blood pressure 127/80, heart rate of 79. HEENT: Reveals sclerae to be white. Conjunctivae pink. NECK: Supple. CHEST: Lungs are clear. HEART: Reveals a regular rate and rhythm. ABDOMEN: Obese, soft, nontender. EXTREMITIES: Show no edema. LABORATORY DATA: No new laboratory data are available. IMPRESSION: A 22-year-old female with morbid obesity, known gallstones, comes to the hospital with epigastric pain after eating pizza. The patient was found to have gallstones and a mildly dilated common bile duct. Her liver enzymes were elevated. An MRCP revealed the possibility of a distal common bile duct stone as there was what appeared to be an abrupt cutoff in the distal common bile duct. Hepatobiliary scan showed nonvisualization of the gallbladder, which I believe is secondary to chronic cholecystitis. There is no gallbladder wall edema or pericholecystic fluid on any of the radiographic imaging studies. The patient has refused transfer to [facility] for preoperative endoscopic retrograde cholangiopancreatography. I suspect that the patient probably passed a stone. Her liver enzymes are trending downward. She is pain free. RECOMMENDATIONS: I have discussed this case with Dr. Ahumada. He will schedule the patient for laparoscopic cholecystectomy with intraoperative cholangiogram. Dr. Zuleta is to return later today should the patient have a common bile duct stone to do an ERCP after the surgery. I the IOC is not possible, the patient may need an endoscopic ultrasound with ERCP to follow with a common bile duct stone is confirmed. Ilir Hinkle MD
--- NOTE | 2017-12-21 11:21 | CP.PCM.PN ---
Subjective - Date & Time of Evaluation Date of Evaluation: 12/06/17 Time of Evaluation: 09:00 - Subjective Subjective: PGY-[address] Morrison Pt has no acute complaint. (+) BM, abd pain resolve denies f/c, cp, sob, dysuria Objective - Vital Signs/Intake and Output Vital Signs (last 24 hours): Temp Pulse Resp BP Pulse Ox 98.2 F 74 20 140/77 96 12/21/17 06:00 12/21/17 06:00 12/21/17 06:00 12/21/17 06:00 12/21/17 06:00 Intake and Output: 12/21/17 12/21/17 06:59 18:59 Intake Total 300 Output Total 0 Balance 300 - Medications Medications: Current Medications Acetaminophen (Tylenol 325mg Tab) 650 mg PO Q6H PRN PRN Reason: Pain, moderate (4-7) - Labs Labs: 12/19/17 06:00 12/21/17 06:45 PT 12.2 SECONDS (9.4-12.5) 12/18/17 17:50 INR 1.07 12/18/17 17:50 APTT 28.6 Seconds (25.1-36.5) 12/18/17 17:50 - Constitutional Appears: No Acute Distress - Head Exam Head Exam: ATRAUMATIC, NORMAL INSPECTION, NORMOCEPHALIC - Eye Exam Eye Exam: EOMI, Normal appearance, PERRL. absent: Scleral icterus Pupil Exam: NORMAL ACCOMODATION - ENT Exam ENT Exam: Mucous Membranes Moist - Neck Exam Additional comments: supple - Respiratory Exam Respiratory Exam: Clear to Ausculation Bilateral, NORMAL BREATHING PATTERN. absent: Rales, Rhonchi, Wheezes - Cardiovascular Exam Cardiovascular Exam: REGULAR RHYTHM, +S1, +S2 - GI/Abdominal Exam GI & Abdominal Exam: Soft, Normal Bowel Sounds. absent: Firm, Guarding, Rigid, Tenderness - Extremities Exam Extremities Exam: Normal Capillary Refill. absent: Calf Tenderness, Pedal Edema , Tenderness - Back Exam Back Exam: absent: CVA tenderness (L), CVA tenderness (R) - Neurological Exam Neurological Exam: Alert, Awake, Oriented x3 - Psychiatric Exam Psychiatric exam: Normal Affect, Normal Mood - Skin Skin Exam: Dry, Warm Assessment and Plan - Assessment and Plan (Free Text) Plan: Abdominal pain - resolved Cholestasis with direct hyperbilirubinemia and transaminitis, questionable choledocholethiasis, R/O cholangitis Cholelithiasis. Had ruled out cholecystitis - tylenol PRN - MRCP: suspected stone at distal common bile duct, dilated at 8mm - HIDA: gall bladder not visualized - Lap tigre tomorrow with intraop cholangiogram. If (+) stone in CBD, will do ERCP and EUS in same surgery - High risk of development of gallstone: (+) Family history, (+) contraceptives, (+) high fat diet Transaminitis, likely due to choledocholethiasis - improving Active smoker - beauty counselor for cessation Prophylasix - SCD, low risk for GI stress ulcer s/r/d/w Dr Morrison
--- NOTE | 2017-12-21 11:44 | CP.PCM.PN ---
Subjective - Date & Time of Evaluation Date of Evaluation: 12/21/17 Time of Evaluation: 10:05 - Subjective Subjective: Surgery Progress Note for Dr. Ahumada Pt seen and examined at bedside this am. Denies any acute complaints, tolerating diet, denies abdominal pain. Has been able to ambulate around room. No acute events overnight. Denies fever, chills, chest pain, shortness of breath , n/v/d/c, urinary complaints, or other symptoms. Objective - Vital Signs/Intake and Output Vital Signs (last 24 hours): Temp Pulse Resp BP Pulse Ox 98.2 F 74 20 140/77 96 12/21/17 06:00 12/21/17 06:00 12/21/17 06:00 12/21/17 06:00 12/21/17 06:00 Intake and Output: 12/21/17 12/21/17 06:59 18:59 Intake Total 300 Output Total 0 Balance 300 - Medications Medications: Current Medications Acetaminophen (Tylenol 325mg Tab) 650 mg PO Q6H PRN PRN Reason: Pain, moderate (4-7) - Labs Labs: 12/19/17 06:00 12/21/17 06:45 PT 12.2 SECONDS (9.4-12.5) 12/18/17 17:50 INR 1.07 12/18/17 17:50 APTT 28.6 Seconds (25.1-36.5) 12/18/17 17:50 - Constitutional Appears: Non-toxic, No Acute Distress - Head Exam Head Exam: ATRAUMATIC, NORMAL INSPECTION - Eye Exam Eye Exam: EOMI, Normal appearance, PERRL - ENT Exam ENT Exam: Mucous Membranes Moist - Respiratory Exam Respiratory Exam: Clear to Ausculation Bilateral, NORMAL BREATHING PATTERN - Cardiovascular Exam Cardiovascular Exam: REGULAR RHYTHM, +S1, +S2 - GI/Abdominal Exam GI & Abdominal Exam: Soft, Normal Bowel Sounds. absent: Distended, Guarding, Rigid, Tenderness, Rebound - Extremities Exam Extremities Exam: Full ROM, Normal Capillary Refill, Normal Inspection - Back Exam Back Exam: Full ROM, NORMAL INSPECTION - Neurological Exam Neurological Exam: Alert, Awake, CN II-XII Intact, Normal Gait, Oriented x3 - Skin Skin Exam: Dry, Intact, Normal Color, Warm Assessment and Plan - Assessment and Plan (Free Text) Assessment: 22 F who presents with abdominal pain, cholelithiasis, suspected choledolcholithiasis. Plan: -F/u GI recs regarding possible ERCP -Tolerating diet, continue to monitor -MRCP shows probable small stone in distal CBD, dilated 8mm -Pt to OR this week for lap tigre -Further recommendations as per Dr. Brandyn Marin, DO PGY-1
--- NOTE | 2017-12-21 12:04 | PN ---
Copied To: Loc Morrison MD Attending MD: Loc Morrison MD DATE: 12/21/[address] Aaron. SUBJECTIVE: A 22-year-old white female. Patient is admitted with cholelithiasis and choledocholithiasis. Patient has a history of cholelithiasis in the past, history of gallstone pancreatitis in the past. Patient has morbid obesity and vitiligo also. Patient has a positive family history of cholelithiasis and cholecystitis in the past. Patient had a HIDA scan which did show nonvisualization of the gallbladder. Patient is being evaluated for possible ERCP, sphincterotomy and laparoscopic cholecystectomy and intraoperative cholangiogram. Patient is stable. PHYSICAL EXAMINATION: ABDOMEN: Obese, but benign. There is no tenderness. There is no Grant's sign. CHEST: Clear to auscultation. HEART: sinus rhythm. EXTREMITIES: Without cyanosis, clubbing, or edema. IMPRESSION: Cholecystitis, choledocholithiasis and history of pancreatitis in the past. Loc Morrison MD
[2017-12-21] MEDS ORDERED: Morphine 2 mg/ml ISec IVP PRN (16:12)
[2017-12-21] MEDS: Morphine 2 mg/ml ISec IM PRN ×2 (17:05→23:09)
[2017-12-22] MEDS: Lactated Ringer's 1,000 ML IV SCH ×4 (01:06→23:57)
[2017-12-22 06:44] LABS: HEMOGLOBIN 13.1 g/dL (12.0-16.0); MEAN CORPUSCULAR HEMOGLOBIN 29.9 pg (25.0-35.0); MEAN CORPUSCULAR HGB CONC 33.6 g/dl (31.0-37.0); MEAN PLATELET VOLUME 9.9 fl (7.0-11.0); RBC 4.38 10^6/uL (3.5-6.1); RED CELL DISTRIBUTION WIDTH 13.4 % (11.5-14.5); WHITE BLOOD COUNT 7.6 10^3/ul (4.5-11.0)
[2017-12-22 07:18] LABS: ALB/GLOB RATIO 1.2 (1.1-1.8); ALT/SGPT 167 U/L (7-56); AST/SGOT 79 U/L (14-36); BLOOD UREA NITROGEN 7 mg/dL (7-21); CALCIUM 9.3 mg/dL (8.4-10.5); GFR NON-AFRICAN AMERICAN > 60
--- NOTE | 2017-12-22 08:31 | CP.PCM.PN ---
<Mercedes Penaloza - Last Filed: 12/22/17 10:11> Subjective - Date & Time of Evaluation Date of Evaluation: 12/22/17 Time of Evaluation: 08:27 - Subjective Subjective: PGY-[address] Aaron Pt had a brief period of abdominal pain 08/09 --> 710 last evening after CLD. Helped by pain med. Denied F/C, CP, SOB, N/V/D/C, dysuria Objective - Vital Signs/Intake and Output Vital Signs (last 24 hours): Temp Pulse Resp BP Pulse Ox 98.4 F 76 20 113/48 L 98 12/22/17 06:00 12/22/17 06:00 12/22/17 06:00 12/22/17 06:00 12/22/17 06:00 - Medications Medications: Current Medications Acetaminophen (Tylenol 325mg Tab) 650 mg PO Q6H PRN PRN Reason: Pain, moderate (4-7) Lactated Ringer's (Lactated Ringer's) 1,000 mls @ 150 mls/hr IV .Q6H40M [facility] Last Admin: 12/22/17 01:06 Dose: 150 mls/hr Morphine Sulfate (Morphine) 1 mg IM Q4H PRN PRN Reason: Pain, moderate (4-7) Last Admin: 12/21/17 23:09 Dose: 1 mg Pantoprazole Sodium (Protonix Inj) 40 mg IVP DAILY [facility] Last Admin: 12/21/17 15:58 Dose: 40 mg - Labs Labs: 12/22/17 06:00 12/22/17 06:00 PT 12.2 SECONDS (9.4-12.5) 12/18/17 17:50 INR 1.07 12/18/17 17:50 APTT 28.6 Seconds (25.1-36.5) 12/18/17 17:50 - Constitutional Appears: No Acute Distress - Head Exam Head Exam: ATRAUMATIC, NORMAL INSPECTION, NORMOCEPHALIC - Eye Exam Eye Exam: EOMI, Normal appearance, PERRL. absent: Scleral icterus Pupil Exam: NORMAL ACCOMODATION - ENT Exam ENT Exam: Mucous Membranes Moist - Neck Exam Additional comments: neck - Respiratory Exam Respiratory Exam: Clear to Ausculation Bilateral, NORMAL BREATHING PATTERN. absent: Rales, Rhonchi, Wheezes - Cardiovascular Exam Cardiovascular Exam: REGULAR RHYTHM, +S1, +S2 - GI/Abdominal Exam GI & Abdominal Exam: Soft, Normal Bowel Sounds. absent: Guarding, Rigid, Tenderness - Extremities Exam Extremities Exam: Normal Capillary Refill. absent: Calf Tenderness, Pedal Edema , Tenderness - Back Exam Back Exam: absent: CVA tenderness (L), CVA tenderness (R) - Neurological Exam Neurological Exam: Alert, Awake, Normal Gait, Oriented x3 Neuro motor strength exam: Left Upper Extremity: 5, Right Upper Extremity: 5, Left Lower Extremity: 5, Right Lower Extremity: 5 - Psychiatric Exam Psychiatric exam: Normal Affect, Normal Mood - Skin Skin Exam: Dry, Warm Assessment and Plan - Assessment and Plan (Free Text) Plan: Abdominal pain - resolved Cholestasis with direct hyperbilirubinemia and transaminitis, questionable choledocholethiasis, R/O cholangitis Cholelithiasis. ? Cholecycstitis - tylenol PRN for fever and mild pain - morphine PRN for more severe pain - MRCP: suspected stone at distal common bile duct, dilated at 8mm - HIDA: gall bladder not visualized - TOMORROW, ERCP and EUS tomorrow with Dr Zuleta - Zayra tigre with intraop cholangiogram Next week - High risk of development of gallstone: (+) Family history, (+) contraceptives, (+) high fat diet Transaminitis, likely due to choledocholethiasis - improving Active smoker - peer counselor for cessation Prophylasix - SCD, low risk for GI stress ulcer s/r/d/w Dr Aaron <Matteo Aaron S - Last Filed: 12/22/17 14:40> Objective - Vital Signs/Intake and Output Vital Signs (last 24 hours): Temp Pulse Resp BP Pulse Ox 98.4 F 76 20 113/48 L 98 12/22/17 06:00 12/22/17 06:00 12/22/17 06:00 12/22/17 06:00 12/22/17 06:00 - Medications Medications: Current Medications Acetaminophen (Tylenol 325mg Tab) 650 mg PO Q6H PRN PRN Reason: Pain, moderate (4-7) Lactated Ringer's (Lactated Ringer's) 1,000 mls @ 150 mls/hr IV .Q6H40M [facility] Last Admin: 12/22/17 09:59 Dose: 150 mls/hr Morphine Sulfate (Morphine) 1 mg IM Q4H PRN PRN Reason: Pain, moderate (4-7) Last Admin: 12/22/17 12:53 Dose: 1 mg Pantoprazole Sodium (Protonix Inj) 40 mg IVP DAILY [facility] Last Admin: 12/22/17 09:59 Dose: 40 mg - Labs Labs: 12/22/17 06:00 12/22/17 06:00 PT 12.2 SECONDS (9.4-12.5) 12/18/17 17:50 INR 1.07 12/18/17 17:50 APTT 28.6 Seconds (25.1-36.5) 12/18/17 17:50 Assessment and Plan - Assessment and Plan (Free Text) Plan: Pt seen and examined. I have reviewed the note of the medical services assistant and agree with it. I have discussed the assessment and plan with the resident. I have reviewed the patient's labs and medications. Pt is going to get ERCP done in the AM. Next week pt will get cholecystectomy. Procedure was to be done today but was cancelled by Dr Ahumdaa. Spoke to family.
--- NOTE | 2017-12-22 09:18 | RAD ---
Date of service: 12/22/2017 HISTORY: pre-op COMPARISON: No prior. FINDINGS: LUNGS: No active pulmonary disease. PLEURA: No significant pleural effusion identified, no pneumothorax apparent. CARDIOVASCULAR: Prominent cardiac silhouette, potentially a function of portable technique. No pulmonary vascular derangement. OSSEOUS STRUCTURES: No significant abnormalities. VISUALIZED UPPER ABDOMEN: Normal. OTHER FINDINGS: None. IMPRESSION: No acute infiltrate bilaterally. No pulmonary vascular congestion.
--- NOTE | 2017-12-22 10:04 | CP.PCM.PN ---
<Mary Carmen Adam - Last Filed: 12/22/17 10:37> Subjective - Date & Time of Evaluation Date of Evaluation: 12/22/17 Time of Evaluation: 09:35 - Subjective Subjective: Mary Carmen Adam DO, PGY-2 GI Progress Note for Dr. Zuleta Patient was seen and examined at bedside. Patient reports no abdominal pain since being NPO. She denies fever, chills, nausea, vomiting, diarrhea, or abdominal pain since being NPO. Chart review indicates no adverse events overnight. Objective - Vital Signs/Intake and Output Vital Signs (last 24 hours): Temp Pulse Resp BP Pulse Ox 98.4 F 76 20 113/48 L 98 12/22/17 06:00 12/22/17 06:00 12/22/17 06:00 12/22/17 06:00 12/22/17 06:00 - Medications Medications: Current Medications Acetaminophen (Tylenol 325mg Tab) 650 mg PO Q6H PRN PRN Reason: Pain, moderate (4-7) Lactated Ringer's (Lactated Ringer's) 1,000 mls @ 150 mls/hr IV .Q6H40M [facility] Last Admin: 12/22/17 01:06 Dose: 150 mls/hr Morphine Sulfate (Morphine) 1 mg IM Q4H PRN PRN Reason: Pain, moderate (4-7) Last Admin: 12/21/17 23:09 Dose: 1 mg Pantoprazole Sodium (Protonix Inj) 40 mg IVP DAILY [facility] Last Admin: 12/21/17 15:58 Dose: 40 mg - Labs Labs: 12/22/17 06:00 12/22/17 06:00 PT 12.2 SECONDS (9.4-12.5) 12/18/17 17:50 INR 1.07 12/18/17 17:50 APTT 28.6 Seconds (25.1-36.5) 12/18/17 17:50 - Constitutional Appears: Well, Non-toxic - Head Exam Head Exam: ATRAUMATIC, NORMOCEPHALIC - Eye Exam Eye Exam: EOMI, Normal appearance - ENT Exam ENT Exam: Mucous Membranes Moist - Neck Exam Neck Exam: Normal Inspection - Respiratory Exam Respiratory Exam: Clear to Ausculation Bilateral, NORMAL BREATHING PATTERN. absent: Accessory Muscle Use - Cardiovascular Exam Cardiovascular Exam: RRR, +S1, +S2. absent: Tachycardia - GI/Abdominal Exam GI & Abdominal Exam: Soft, Normal Bowel Sounds - Extremities Exam Extremities Exam: Normal Inspection. absent: Calf Tenderness - Neurological Exam Neurological Exam: Alert, Awake, Oriented x3 - Psychiatric Exam Psychiatric exam: Normal Affect, Normal Mood - Skin Skin Exam: Dry, Intact, Normal Color, Warm Assessment and Plan - Assessment and Plan (Free Text) Assessment: 22 year old female who presented with severe right upper quadrant abdominal pain and findings consistent with stones in the CBD and gallbladder. She will be on a CLD and NPO after midnight for EUS and ERCP tomorrow. Case reviewed and discussed with attending physician, Dr. Zuleta <Freya Zuleta V - Last Filed: 12/23/17 00:02> Objective - Vital Signs/Intake and Output Vital Signs (last 24 hours): Temp Pulse Resp BP Pulse Ox 98.3 F 74 16 117/71 94 L 12/22/17 22:54 12/22/17 22:54 12/22/17 22:54 12/22/17 22:54 12/22/17 22:54 - Medications Medications: Current Medications Acetaminophen (Tylenol 325mg Tab) 650 mg PO Q6H PRN PRN Reason: Pain, moderate (4-7) Lactated Ringer's (Lactated Ringer's) 1,000 mls @ 150 mls/hr IV .Q6H40M [facility] Last Admin: 12/22/17 23:57 Dose: 150 mls/hr Morphine Sulfate (Morphine) 1 mg IM Q4H PRN PRN Reason: Pain, moderate (4-7) Last Admin: 12/22/17 22:10 Dose: 1 mg Pantoprazole Sodium (Protonix Inj) 40 mg IVP DAILY [facility] Last Admin: 12/22/17 09:59 Dose: 40 mg - Labs Labs: 12/22/17 06:00 12/22/17 06:00 PT 12.2 SECONDS (9.4-12.5) 12/18/17 17:50 INR 1.07 12/18/17 17:50 APTT 28.6 Seconds (25.1-36.5) 12/18/17 17:50 Attending/Attestation - Attestation I have personally seen and examined this patient.: Yes I have fully participated in the care of the patient.: Yes I have reviewed all pertinent clinical information, including history, physical exam and plan: Yes Notes (Text): This is an addendum to GI followup report dictated by the Supervisor [facility]. The patient was seen and evaluated earlier. Medical records, lab studies, imagings were reviewed. Last 24 hours events reviewed. Agreed with the above treatment plan as outlined in Supervisor [facility] 's notes with the addition of the following discussed with the patient and patient's family, and Dr. Ahumada Cholelithiasis MRCP suggests possible distal CBD LFTs still a remains elevated morbidly obese On examination minimal tenderness on deep palpation epigastric and right upper quadrant area patient is scheduled for EUS to further evaluate and possibly ERCP if needed based on EUSfinding Follow-up INR and LFTs in a.m. 12/22/17 23:58
--- NOTE | 2017-12-22 11:46 | CP.PCM.PN ---
Subjective - Date & Time of Evaluation Date of Evaluation: 12/22/17 Time of Evaluation: 09:00 - Subjective Subjective: Pt seen and examined at bedside this morning. Pt denies abdominal pain, no new complaints at this time. Objective - Vital Signs/Intake and Output Vital Signs (last 24 hours): Temp Pulse Resp BP Pulse Ox 98.4 F 76 20 113/48 L 98 12/22/17 06:00 12/22/17 06:00 12/22/17 06:00 12/22/17 06:00 12/22/17 06:00 - Medications Medications: Current Medications Acetaminophen (Tylenol 325mg Tab) 650 mg PO Q6H PRN PRN Reason: Pain, moderate (4-7) Lactated Ringer's (Lactated Ringer's) 1,000 mls @ 150 mls/hr IV .Q6H40M [facility] Last Admin: 12/22/17 09:59 Dose: 150 mls/hr Morphine Sulfate (Morphine) 1 mg IM Q4H PRN PRN Reason: Pain, moderate (4-7) Last Admin: 12/21/17 23:09 Dose: 1 mg Pantoprazole Sodium (Protonix Inj) 40 mg IVP DAILY [facility] Last Admin: 12/22/17 09:59 Dose: 40 mg - Labs Labs: 12/22/17 06:00 12/22/17 06:00 PT 12.2 SECONDS (9.4-12.5) 12/18/17 17:50 INR 1.07 12/18/17 17:50 APTT 28.6 Seconds (25.1-36.5) 12/18/17 17:50 - Constitutional Appears: No Acute Distress - Head Exam Head Exam: ATRAUMATIC, NORMOCEPHALIC - Eye Exam Eye Exam: EOMI - ENT Exam ENT Exam: Mucous Membranes Moist - Neck Exam Neck Exam: Full ROM - Respiratory Exam Respiratory Exam: Clear to Ausculation Bilateral, NORMAL BREATHING PATTERN. absent: Accessory Muscle Use, Decreased Breath Sounds, Rales, Rhonchi, Wheezes, Respiratory Distress, Stridor - Cardiovascular Exam Cardiovascular Exam: REGULAR RHYTHM, RRR, +S1, +S2. absent: Diastolic murmur, JVD - GI/Abdominal Exam GI & Abdominal Exam: Soft, Normal Bowel Sounds. absent: Distended, Firm, Guarding, Rigid, Tenderness, Rebound - Extremities Exam Extremities Exam: Full ROM, Normal Inspection. absent: Calf Tenderness, Pedal Edema - Back Exam Back Exam: Full ROM, NORMAL INSPECTION. absent: CVA tenderness (L), CVA tenderness (R), muscle spasm - Neurological Exam Neurological Exam: Alert, Awake, Oriented x3 - Psychiatric Exam Psychiatric exam: Normal Affect, Normal Mood - Skin Skin Exam: Dry, Normal Color, Warm Assessment and Plan - Assessment and Plan (Free Text) Assessment: 22 F who presents with abdominal pain, cholelithiasis, suspected choledolcholithiasis. Plan: -ERCP/ possible EUS tomorrow -clear liquid diet -cholecystectomy this admission vs out patient, pending ERCP results -Further recommendations as per Dr. Brandyn Lloyd PGY-1
[2017-12-22] MEDS: Morphine 2 mg/ml ISec IM PRN ×3 (12:53→22:10)
--- NOTE | 2017-12-22 19:20 | CARD ---
APPROVED REPORT Date of service: 12/22/2017 EKG Measurement Heart [id number] [id number] [id number] <Conclusion> Normal sinus rhythm Normal ECG
[2017-12-22] MEDS ORDERED: Morphine 2 mg/ml ISec IVP STA (23:04)
[2017-12-23] MEDS: Morphine 2 mg/ml ISec IM PRN (06:05)
[2017-12-23] MEDS ORDERED: Lactated Ringer's 1,000 ML IV SCH ×2 (06:15→14:45)
[2017-12-23 06:46] LABS: ALB/GLOB RATIO 1.1 (1.1-1.8); ALBUMIN 3.7 g/dL (3.0-4.8); ALT/SGPT 188 U/L (7-56); AST/SGOT 112 U/L (14-36); BLOOD UREA NITROGEN 7 mg/dL (7-21); CALCIUM 8.5 mg/dL (8.4-10.5); GFR NON-AFRICAN AMERICAN > 60
[2017-12-23 06:52] LABS: BASO # 0.01 K/mm3 (0.0-2.0); BASO % 0.1 % (0.0-3.0); EOS # 0.2 (0.0-0.7); EOS % 2.5 % (1.5-5.0); GRAN # 4.33 (1.4-6.5); GRAN % 59.1 % (50.0-68.0); HEMOGLOBIN 12.7 g/dL (12.0-16.0); LYMPH # 2.2 (1.2-3.4); LYMPH % 29.7 % (22.0-35.0); MEAN CELL VOLUME 89.3 fl (80.0-105.0); MEAN CORPUSCULAR HEMOGLOBIN 30.2 pg (25.0-35.0); MEAN CORPUSCULAR HGB CONC 33.8 g/dl (31.0-37.0); MEAN PLATELET VOLUME 10.3 fl (7.0-11.0); MONO # 0.6 (0.1-0.6); MONO % 8.6 % (1.0-6.0); RBC 4.21 10^6/uL (3.5-6.1); RED CELL DISTRIBUTION WIDTH 13.5 % (11.5-14.5); WHITE BLOOD COUNT 7.3 10^3/ul (4.5-11.0)
--- NOTE | 2017-12-23 08:08 | CP.PCM.PN ---
Subjective - Date & Time of Evaluation Date of Evaluation: 12/23/17 Time of Evaluation: 08:00 - Subjective Subjective: General Surgery progress note for Dr Ahumada Pt seen and examined at bedside this morning. Pt reports some mild abdominal pain overnight, which has since resolved. Denies any new complaints at this time. Objective - Vital Signs/Intake and Output Vital Signs (last 24 hours): Temp Pulse Resp BP Pulse Ox 98.2 F 66 20 108/54 L 98 12/23/17 06:00 12/23/17 06:00 12/23/17 06:00 12/23/17 06:00 12/23/17 06:00 - Medications Medications: Current Medications Acetaminophen (Tylenol 325mg Tab) 650 mg PO Q6H PRN PRN Reason: Pain, moderate (4-7) Lactated Ringer's (Lactated Ringer's) 1,000 mls @ 75 mls/hr IV .[id number] [facility] Morphine Sulfate (Morphine) 1 mg IM Q4H PRN PRN Reason: Pain, moderate (4-7) Last Admin: 12/23/17 06:05 Dose: 1 mg Pantoprazole Sodium (Protonix Inj) 40 mg IVP DAILY [facility] Last Admin: 12/22/17 09:59 Dose: 40 mg - Labs Labs: 12/23/17 05:45 12/23/17 05:45 PT 12.2 SECONDS (9.4-12.5) 12/18/17 17:50 INR 1.07 12/18/17 17:50 APTT 28.6 Seconds (25.1-36.5) 12/18/17 17:50 - Constitutional Appears: No Acute Distress - Head Exam Head Exam: ATRAUMATIC, NORMAL INSPECTION, NORMOCEPHALIC - Eye Exam Eye Exam: EOMI - ENT Exam ENT Exam: Mucous Membranes Moist - Neck Exam Neck Exam: Full ROM - Respiratory Exam Respiratory Exam: Clear to Ausculation Bilateral, NORMAL BREATHING PATTERN. absent: Accessory Muscle Use, Chest Wall Tenderness, Decreased Breath Sounds, Rhonchi, Wheezes, Respiratory Distress, Stridor - Cardiovascular Exam Cardiovascular Exam: REGULAR RHYTHM, RRR, +S1, +S2. absent: Diastolic murmur, JVD, Murmur - GI/Abdominal Exam GI & Abdominal Exam: Soft, Normal Bowel Sounds. absent: Distended, Firm, Guarding, Rigid, Tenderness, Rebound - Extremities Exam Extremities Exam: Full ROM, Normal Inspection. absent: Calf Tenderness, Pedal Edema - Back Exam Back Exam: Full ROM, NORMAL INSPECTION. absent: CVA tenderness (L), CVA tenderness (R) - Neurological Exam Neurological Exam: Alert, Awake - Psychiatric Exam Psychiatric exam: Normal Affect, Normal Mood - Skin Skin Exam: Dry, Normal Color, Warm Assessment and Plan - Assessment and Plan (Free Text) Assessment: 22 F who presents with abdominal pain, cholelithiasis, suspected choledolcholithiasis. Plan: -ERCP/ possible EUS today -cholecystectomy Tuesday, pending ERCP results -Further recommendations as per Dr. Brandyn Lloyd PGY-1
--- NOTE | 2017-12-23 08:26 | PN ---
Copied To: Matteo Aaron MD Attending MD: Matteo Aaron MD DATE: 12/23/2017 SUBJECTIVE: The patient has no complaints of any chest pain. No shortness of breath, no headaches or dizziness. PHYSICAL EXAMINATION VITAL SIGNS: Temperature is 98.3, pulse of 74, blood pressure is 117/71, respirations 16. GENERAL: The patient is lying in bed, flat, comfortable. HEENT: No oral lesion. Anicteric sclerae. Moist mucosa. NECK: No JVD, adenopathy, or thyromegaly. CARDIOVASCULAR: S1 and S2, regular. No murmurs, rubs, or gallops. LUNGS: Clear to auscultation bilaterally. No wheeze, rales, or rhonchi. ABDOMEN: Bowel sounds are positive, soft, nontender and nondistended. EXTREMITIES: No cyanosis, clubbing or edema. ASSESSMENT: 1. Choledocholithiasis. 2. Obesity with a body mass index of 50. 3. Cholelithiasis. PLAN: The patient is going for an ERCP. The patient is comfortable. She has not had any symptoms. She is going to have surgery early next week. She is currently on lactated Ringer's. The patient is on morphine for pain. She is on Protonix daily. She is on a liquid diet. I did speak to Dr. Ahumada regarding the case yesterday. Matteo Aaron MD
[2017-12-23 09:37] LABS: AMYLASE 59 U/L (35-125); LIPASE 64 U/L (23-300)
[2017-12-23] MEDS ORDERED: Indomethacin 50 MG Suppository PR ONE ×2 (10:02→13:09)
[2017-12-23] MEDS ORDERED: Iohexol 240 (50 ml) ONE (10:06)
[2017-12-23] MEDS ORDERED: Propofol 10 mg/ml Inj (20 ML) ONE (11:25)
[2017-12-23] MEDS ORDERED: Midazolam 2 MG/2 ML VIAL ONE (11:26)
[2017-12-23] MEDS ORDERED: Rocuronium 10 mg/ml (5 ml) ONE (11:27)
[2017-12-23] MEDS ORDERED: cefTRIAXone (Rocephin) 1 gm Inj ONE (11:34)
[2017-12-23] MEDS ORDERED: cefTRIAXone 1 GM in NS 100 ML BAG IVPB ONE (12:20)
--- NOTE | 2017-12-23 15:31 | RAD ---
Date of service: 12/23/2017 PROCEDURE: Fluoroscopy was provided in the endoscopy suite HISTORY: ? CBD OBST / SPHINCTEROTOMY W/ BALLOON SWEEP COMPARISON: TECHNIQUE: 310.3 seconds fluoro time. Cumulative dose 95.51 mGy. Six images were submitted FINDINGS: The study shows passage of a balloon catheter in the common duct IMPRESSION: As above
[2017-12-23 22:36] VITALS: PULSE 73; RESP 20
[2017-12-24] MEDS ORDERED: Benzocaine/Menthol (Cepacol) Lozenge MT PRN (00:12)
[2017-12-24 07:51] VITALS: BP 136/84; TEMP 98.6; O2SAT 98
--- NOTE | 2017-12-24 08:54 | CP.PCM.PN ---
Subjective - Date & Time of Evaluation Date of Evaluation: 12/24/17 Time of Evaluation: 08:51 - Subjective Subjective: Surgery: Dr. Ahumada Pt seen and examined. No acute overnight events, s/p ERCP with stone removal yesterday. Pt states she feels well and has no abdominal pain. Only complaining of a soar throat from intubation yesterday. She's tolerating her diet and denies N/V, F/C. Objective - Vital Signs/Intake and Output Vital Signs (last 24 hours): Temp Pulse Resp BP Pulse Ox 98.6 F 73 20 136/84 98 12/24/17 07:50 12/24/17 07:50 12/24/17 07:50 12/24/17 07:50 12/24/17 07:50 Intake and Output: 12/24/17 12/24/17 06:59 18:59 Intake Total 500 Balance 500 - Medications Medications: Current Medications Acetaminophen (Tylenol 325mg Tab) 650 mg PO Q6H PRN PRN Reason: Pain, moderate (4-7) Benzocaine/Menthol (Cepacol Sore Throat) 1 melina MT Q2H PRN PRN Reason: Sore Throat Lactated Ringer's (Lactated Ringer's) 1,000 mls @ 75 mls/hr IV .[id number] RODO Morphine Sulfate (Morphine) 1 mg IM Q4H PRN PRN Reason: Pain, moderate (4-7) Last Admin: 12/23/17 06:05 Dose: 1 mg Pantoprazole Sodium (Protonix Inj) 40 mg IVP DAILY [facility] Last Admin: 12/23/17 09:37 Dose: 40 mg - Labs Labs: 12/23/17 05:45 12/23/17 05:45 PT 12.2 SECONDS (9.4-12.5) 12/18/17 17:50 INR 1.07 12/18/17 17:50 APTT 28.6 Seconds (25.1-36.5) 12/18/17 17:50 - Constitutional Appears: Well, No Acute Distress - Head Exam Head Exam: ATRAUMATIC, NORMOCEPHALIC - Eye Exam Eye Exam: Normal appearance - ENT Exam ENT Exam: Mucous Membranes Moist - Respiratory Exam Respiratory Exam: NORMAL BREATHING PATTERN - Cardiovascular Exam Cardiovascular Exam: RRR - GI/Abdominal Exam GI & Abdominal Exam: Soft. absent: Distended, Tenderness - Neurological Exam Neurological Exam: Alert, Awake, Oriented x3 - Skin Skin Exam: Dry, Warm Assessment and Plan - Assessment and Plan (Free Text) Assessment: 22F with cholelithiasis & choledocholithiasis s/p ERCP with sphincterotomy & balloon extraction ; POD#1 Plan: - advance diet as tolerated per GI - plan for OR tuesday for lap tigre - d/w Dr. Brandyn Jaimes
[2017-12-24 12:09] LABS: HEMOGLOBIN 13.1 g/dL (12.0-16.0); MEAN CORPUSCULAR HEMOGLOBIN 30.6 pg (25.0-35.0); MEAN PLATELET VOLUME 10.2 fl (7.0-11.0); RBC 4.28 10^6/uL (3.5-6.1); RED CELL DISTRIBUTION WIDTH 13.4 % (11.5-14.5)
[2017-12-24 12:23] LABS: ALB/GLOB RATIO 1.2 (1.1-1.8); ALBUMIN 4.2 g/dL (3.0-4.8); ALT/SGPT 156 U/L (7-56); AST/SGOT 48 U/L (14-36); BLOOD UREA NITROGEN 6 mg/dL (7-21); CALCIUM 9.3 mg/dL (8.4-10.5); GFR NON-AFRICAN AMERICAN > 60
--- NOTE | 2017-12-24 12:41 | CP.PCM.PN ---
<Ady Shay - Last Filed: 12/24/17 12:37> Subjective - Date & Time of Evaluation Date of Evaluation: 12/24/17 Time of Evaluation: 10:45 - Subjective Subjective: PGY-4 GI Fellow Prog Note Pt lying in bed when seen this AM. States that she feels well post-ERCP without only a mild sore throat. Tolerating diet and eager to return home. 5 point ROS negative other than stated above Objective - Vital Signs/Intake and Output Vital Signs (last 24 hours): Temp Pulse Resp BP Pulse Ox 98.6 F 73 20 136/84 98 12/24/17 07:50 12/24/17 07:50 12/24/17 07:50 12/24/17 07:50 12/24/17 07:50 Intake and Output: 12/24/17 12/24/17 06:59 18:59 Intake Total 500 Balance 500 - Medications Medications: Current Medications Acetaminophen (Tylenol 325mg Tab) 650 mg PO Q6H PRN PRN Reason: Pain, moderate (4-7) Benzocaine/Menthol (Cepacol Sore Throat) 1 melina MT Q2H PRN PRN Reason: Sore Throat Lactated Ringer's (Lactated Ringer's) 1,000 mls @ 75 mls/hr IV .[id number] RODO Morphine Sulfate (Morphine) 1 mg IM Q4H PRN PRN Reason: Pain, moderate (4-7) Last Admin: 12/23/17 06:05 Dose: 1 mg Pantoprazole Sodium (Protonix Inj) 40 mg IVP DAILY [facility] Last Admin: 12/24/17 11:09 Dose: 40 mg - Labs Labs: 12/24/17 12:00 12/24/17 12:00 PT 12.2 SECONDS (9.4-12.5) 12/18/17 17:50 INR 1.07 12/18/17 17:50 APTT 28.6 Seconds (25.1-36.5) 12/18/17 17:50 - Constitutional Appears: Well, Non-toxic, Older Than Stated Age - Head Exam Head Exam: ATRAUMATIC, NORMAL INSPECTION Additional comments: Morbidly obese - Eye Exam Eye Exam: Conjunctival injection, EOMI. absent: Scleral icterus - ENT Exam ENT Exam: Mucous Membranes Moist. absent: Mucous Membranes Dry, Normal External Ear Exam - Respiratory Exam Respiratory Exam: Clear to Ausculation Bilateral, NORMAL BREATHING PATTERN. absent: Wheezes - GI/Abdominal Exam GI & Abdominal Exam: Soft, Normal Bowel Sounds. absent: Bruit, Distended, Firm , Guarding, Rigid, Tenderness Assessment and Plan - Assessment and Plan (Free Text) Assessment: 22 year old female who presented with severe right upper quadrant abdominal pain and findings consistent with stones in the CBD and gallbladder. # Choledocholithiasis: S/p ERCP with biliary sphincterotomy and balloon stone removal 12/23/17. # Transamnitis: Due to above. Improving Plan: - Tolerating diet - F/u with surgery for cholecystectomy Pt discussed with Dr. Zuleta. See his attestation for further recs/changes. <Freya Zuleta V - Last Filed: 12/25/17 00:04> Objective - Vital Signs/Intake and Output Vital Signs (last 24 hours): Temp Pulse Resp BP Pulse Ox 98.6 F 73 20 136/84 98 12/24/17 07:50 12/24/17 07:50 12/24/17 07:50 12/24/17 07:50 12/24/17 07:50 - Labs Labs: 12/24/17 12:00 12/24/17 12:00 PT 12.2 SECONDS (9.4-12.5) 12/18/17 17:50 INR 1.07 12/18/17 17:50 APTT 28.6 Seconds (25.1-36.5) 12/18/17 17:50 Attending/Attestation - Attestation I have personally seen and examined this patient.: Yes I have fully participated in the care of the patient.: Yes I have reviewed all pertinent clinical information, including history, physical exam and plan: Yes Notes (Text): This is an addendum to GI progress report dictated by the GI Fellow.The patient was seen and examined earlier. Medical records, lab studies, imagings were reviewed. Last 24 hours events reviewed. Agreed with the above treatment plan as outlined in GI Fellow 's notes with the addition of the following Patient is tolerating diet Repeat labs reviewed Denies any abdominal pain on examination abdomen was soft no tenderness Patient was advised strongly to have cholecystectomy soon 12/25/17 00:02
--- NOTE | 2017-12-25 16:02 | DS ---
Copied To: Cassy Edwards MD Attending MD: Cassy Edwards MD HISTORY OF PRESENT ILLNESS: The patient is 22 years old, patient of Dr. Aaron, who came to emergency room on 12/19/2017 with severe right upper quadrant pain. Patient was found to have common bile duct stone. She was evaluated by Dr. Zuleta. Patient underwent ERCP, and had common bile duct stone extracted, followed by sphincterotomy. She remained on clear liquid diet, did well, anxious to go home. Seen and examined this morning. PHYSICAL EXAMINATION: VITAL SIGNS: Patient is afebrile, pulse 73, respirations 20, blood pressure 136/54. LUNGS: Bilateral good airflow. No rhonchi or crackle. HEART: S1, S2 audible. ABDOMEN: Soft, obese, nontender. No rebound, no guarding. NEUROLOGIC: She is awake, alert, oriented, communicative, ambulatory. LABORATORY EXAM: WBC 9, hemoglobin 13, hematocrit 38.5, platelets 267. Chemistry: Sodium 140, potassium 4.2, chloride 105, CO2 of 23, BUN 6, creatinine 0.6, blood sugar of 93. AST is 48, ALT 166, and alk phos is 152 that is trending down. Urine positive for Gram-negative rods. ASSESSMENT: 1. Morbid obesity. 2. Cholelithiasis. 3. Choledocholithiasis, status post endoscopic retrograde cholangiopancreatography and sphincterotomy. PLAN: Patient is going to be discharged home today. She will follow up with Dr. Ahumada as outpatient and will have elective laparoscopic cholecystectomy done later on. Cassy Edwards MD
== END 2017-12-24 16:06 | disposition home or self-care (01) | DRG 445 ==
LOC: ED 17:14 → ERH 19:01 → 5RSO 20:30
PROVIDERS: ADMIT Internal Medicine Nephrology; ATTEND Internal Medicine Nephrology
PROC: 0FC98ZZ Extirpation of Matter from Common Bile Duct, Via Natural or Artificial Opening Endoscopic (ICD-10-PCS; principal; 2017-12-23 10:15)
PROC: 0F798ZZ Dilation of Common Bile Duct, Via Natural or Artificial Opening Endoscopic (ICD-10-PCS; 2017-12-23 10:15)
PROC: 0DJ08ZZ Inspection of Upper Intestinal Tract, Via Natural or Artificial Opening Endoscopic (ICD-10-PCS; 2017-12-23 10:15)
PROC: BD47ZZZ Ultrasonography of Gastrointestinal Tract (ICD-10-PCS; 2017-12-23 10:15)
DX: K80.70 Calculus of gallbladder and bile duct without cholecystitis without obstruction (principal); Z68.43 Body mass index [BMI] 50.0-59.9, adult; E66.01 Morbid (severe) obesity due to excess calories; F17.210 Nicotine dependence, cigarettes, uncomplicated; L80 Vitiligo; Z53.20 Procedure and treatment not carried out because of patient's decision for unspecified reasons; Z82.5 Family history of asthma and other chronic lower respiratory diseases; Z83.3 Family history of diabetes mellitus; Z83.79 Family history of other diseases of the digestive system